=== PATIENT | female | born 1975 | race Caucasian/White ===

== ENCOUNTER 2019-11-22 21:09 | Emergency (ER) | payer OTHER ==
[~2019-11-22] VITALS: Ht 167.6 cm; Wt 68.2 kg
[2019-11-22 21:14] VITALS: BP 128/77; TEMP 98.9
[2019-11-22] MEDS ORDERED: PREDNISONE20 MG PO (22:01)
[2019-11-22 22:35] VITALS: PULSE 61
== END 2019-11-22 22:35 | disposition home or self-care (01) ==
LOC: COL.ER 21:09
DX: T50.905A Adverse effect of unspecified drugs, medicaments and biological substances, initial encounter (principal)
CPT/HCPCS: J1200; J2930